=== PATIENT | female | born 1965 | race Caucasian/White ===

== ENCOUNTER 2018-01-13 14:30 | Emergency (ER) | payer BC, OTHER ==
[2018-01-13 14:45] VITALS: BP 140/85
--- NOTE | 2018-01-13 15:28 | UC ---
Throat Pain/Nasal Elio HPI - HPI Summary HPI Summary: started feeling sick with URI 4 days ago, today ST much worse, glands swollen, occ cough - History of Current Complaint Chief Complaint: UCRespiratory Stated Complaint: SORE THROAT Time Seen by Provider: 01/13/18 15:08 Hx Obtained From: Patient Hx Last Menstrual Period: 12/07/17 Onset/Duration: Gradual Onset Pain Intensity: 5 Associated Signs & Symptoms: Positive: Negative - Allergies/Home Medications Allergies/Adverse Reactions: Allergies Allergy/AdvReac Type Severity Reaction Status Date / Time Sulfa (Sulfonamide Allergy Rash Verified 01/13/18 14:45 Antibiotics) Home Medications: Home Medications Losartan TAB* [Cozaar TAB*] 1 tab PO DAILY 01/13/18 [History Confirmed 01/13/18] PMH/Surg Hx/FS Hx/Imm Hx Previously Healthy: Yes Endocrine History: Dyslipidemia Cardiovascular History: Hypertension GI/ History: Gastroesophageal Reflux - Surgical History Surgical History: Yes Surgery Procedure, Year, and Place: TONSILECTOMY AGE 8. RT SHOULDER [place]TH[place] 1989 &1996. LEFT KNEE ACL - Family History Known Family History: Positive: Other - no fmh sinusitis - Social History Occupation: Employed Full-time - sells [employer] Alcohol Use: Occasionally Substance Use Type: None Smoking Status (MU): Never Smoked Tobacco Review of Systems Constitutional: Negative Skin: Negative Eyes: Negative ENT: Sore Throat, Ear Ache, Sinus Congestion, Sinus Pain/Tenderness Respiratory: Negative Cardiovascular: Negative Gastrointestinal: Negative Musculoskeletal: Negative Neurological: Negative Psychological: Negative All Other Systems Reviewed And Are Negative: Yes Physical Exam Triage Information Reviewed: Yes Appearance: Well-Appearing, No Pain Distress Vital Signs: Initial Vital Signs Temp 97.2 F 01/13/18 14:42 Pulse 90 01/13/18 14:42 Resp 18 01/13/18 14:42 BP 140/85 01/13/18 14:42 Pulse Ox 98 01/13/18 14:42 Vital Signs Reviewed: Yes Eyes: Positive: Conjunctiva Clear ENT: Positive: Pharyngeal erythema, Nasal congestion, TM dull Neck: Positive: Enlarged Nodes @ - ant cervical Respiratory: Positive: Lungs clear Cardiovascular Exam: Normal Musculoskeletal Exam: Normal Neurological Exam: Normal Psychological Exam: Normal Skin Exam: Normal Throat Pain/Nasal Course/Dx - Differential Dx/Diagnosis Differential Diagnosis/HQI/PQRI: Otitis Media, Pharyngitis, Sinusitis, Tonsillitis, URI Provider Diagnoses: sinusitis Discharge - Sign-Out/Discharge Documenting (check all that apply): Discharge/Admit/Transfer - Discharge Plan Condition: Stable Disposition: HOME Prescriptions: Amoxicillin/Clavulanate TAB* [Augmentin TAB 875*] 875 mg PO BID #20 tab Referrals: Forest Clark MD [Primary Care Provider] - 3 Days (if no better) Additional Instructions: drink plenty of fluids start augmentin as prescribed ibuprofen as directed for pain and fever - Billing Disposition and Condition Condition: STABLE Disposition: Home
== END 2018-01-13 15:39 | disposition home or self-care (01) ==
LOC: UCEAST 14:30
DX: J32.9 Chronic sinusitis, unspecified (principal); E78.5 Hyperlipidemia, unspecified; I10 Essential (primary) hypertension; K21.9 Gastro-esophageal reflux disease without esophagitis; Z88.2 Allergy status to sulfonamides
CPT/HCPCS: 87651; 99212; G0463

== ENCOUNTER 2018-12-15 09:30 | Emergency (ER) | payer BC ==
[2018-12-15 09:41] VITALS: BP 146/85
--- NOTE | 2018-12-15 10:25 | UC ---
Abdominal Pain Female HPI - HPI Summary HPI Summary: This patient is a 52-year-old female who presents to the urgent care with chief complaint of having upper respiratory tract infection symptoms such as runny nose, dry cough, nasal congestion. She also reports that shes having dysuria, hematuria, urinary frequency and urgency. Patient reports that she feels that she has a urinary tract infection. She denies any fevers, denies any back pain , or abdominal pain. Patient has no other complaints. Urinalysis positive for leukocytes and blood and protein. This is consistent with a UTI. The patient was given a position for Bactrim and will follow-up with the primary care physician. Patient is hemodynamically stable alert and oriented 3 She was instructed to return to the urgent care or emergency room if the symptoms worsen. She understands and agrees. - History of Current Complaint Chief Complaint: UCGU Stated Complaint: HEADCOLD/ URINARY ISSUE Time Seen by Provider: 12/15/18 09:43 Hx Obtained From: Patient Hx Last Menstrual Period: 11/25/18 ?: No Onset/Duration: Gradual Onset Severity Initially: Mild Severity Currently: Mild Pain Intensity: 0 Allergies/Adverse Reactions: Allergies Allergy/AdvReac Type Severity Reaction Status Date / Time lisinopril Allergy Hives Verified 12/15/18 09:41 Sulfa (Sulfonamide Allergy Rash Verified 12/15/18 09:41 Antibiotics) Home Medications: Home Medications Gemfibrozil TAB* [Lopid TAB*] 600 mg PO BID 12/15/18 [History Confirmed ] Hydrochlorothiazide TAB* [Hydrodiuril TAB*] 12.5 mg PO DAILY 12/15/18 [History Confirmed 12/15/18] Omeprazole 40 mg PO DAILY 12/15/18 [History Confirmed 12/15/18] Telmisartan 20 mg PO DAILY 12/15/18 [History Confirmed 12/15/18] PMH/Surg Hx/FS Hx/Imm Hx Previously Healthy: Yes Endocrine History: Dyslipidemia Cardiovascular History: Hypertension - Surgical History Surgical History: Yes Surgery Procedure, Year, and Place: TONSILECTOMY AGE 8. RT SHOULDER [place]THRO 1989 &1996. LEFT KNEE ACL - Family History Known Family History: Positive: None, Other - no fmh sinusitis - Social History Alcohol Use: Occasionally Substance Use Type: None Smoking Status (MU): Never Smoked Tobacco Review of Systems All Other Systems Reviewed And Are Negative: Yes Constitutional: Positive: Negative Skin: Positive: Negative Eyes: Positive: Negative ENT: Positive: Sore Throat, Nasal Discharge, Sinus Congestion Respiratory: Positive: Negative Cardiovascular: Positive: Negative Gastrointestinal: Positive: Negative Genitourinary: Positive: Dysuria, Hematuria, Frequency, Urgency Motor: Positive: Negative Neurovascular: Positive: Negative Neurological: Positive: Negative Psychological: Positive: Negative Is Patient Immunocompromised?: No Physical Exam - Summary Physical Exam Summary: VITAL SIGNS: Reviewed. GENERAL: Patient is an obese female who is lying comfortable in the stretcher. Patient is not in any acute respiratory distress. HEAD AND FACE: No signs of trauma. No ecchymosis, hematomas or skull depressions. No sinus tenderness. EYES: PERRLA, EOMI x 2, No injected conjunctiva, no nystagmus. EARS: Hearing grossly intact. Ear canals and tympanic membranes are within normal limits. MOUTH: Oropharynx within normal limits. NECK: Supple, trachea is midline, no adenopathy, no JVD, no carotid bruit, no c- spine tenderness, neck with full ROM. CHEST: Symmetric, no tenderness at palpation LUNGS: Clear to auscultation bilaterally. No wheezing or crackles. CVS: Regular rate and rhythm, S1 and S2 present, no murmurs or gallops appreciated. ABDOMEN: Soft, non-tender. No signs of distention. No rebound no guarding, and no masses palpated. Bowel sounds are normal. EXTREMITIES: FROM in all major joints, no edema, no cyanosis or clubbing. NEURO: Alert and oriented x 3. No acute neurological deficits. Speech is normal and follows commands. SKIN: Dry and warm Vital Signs: Initial Vital Signs Temp 97.0 F 12/15/18 09:36 Pulse 91 12/15/18 09:36 Resp 16 12/15/18 09:36 BP 146/85 12/15/18 09:36 Pulse Ox 96 12/15/18 09:36 Abd Pain Female Course/Dx - Course Course Of Treatment: Urinalysis positive for leukocytes and blood and protein. This is consistent with a UTI. The patient was given a position for Bactrim and will follow-up with the primary care physician. Patient is hemodynamically stable alert and oriented 3 She was instructed to return to the urgent care or emergency room if the symptoms worsen. She understands and agrees. Patients blood pressure was noted to be elevated. The patient was instructed to follow up with primary care provider for reassessment of increased blood pressure. - Differential Dx/Diagnosis Provider Diagnosis: UTI (urinary tract infection) Discharge - Sign-Out/Discharge Documenting (check all that apply): Patient Departure All imaging exams completed and their final reports reviewed: No Studies - Discharge Plan Condition: Stable Disposition: HOME Prescriptions: Ciprofloxacin TAB* [Cipro 500 MG TAB*] 500 mg PO BID #6 tab Patient Education Materials: Urinary Tract Infection in Women (ED), Upper Respiratory Infection (DC) Referrals: Sugey Samuels MD [Primary Care Provider] - Additional Instructions: Take medications as instructed Increase your fluid intake Return to the UC if symptoms worsen - Billing Disposition and Condition Condition: STABLE Disposition: Home
--- NOTE | 2018-12-16 15:22 | UC ---
- Progress Note Progress Note: 12/16/2018 Urine culture preliminary: positive for E.Coli Pt Rx Ciprofloxacin which covers it No change Faiza Diaz PA-C Course/Dx - Diagnoses Provider Diagnoses: UTI (urinary tract infection) Discharge - Sign-Out/Discharge Documenting (check all that apply): Post-Discharge Follow Up All imaging exams completed and their final reports reviewed: No Studies - Discharge Plan Condition: Stable Disposition: HOME Prescriptions: Ciprofloxacin TAB* [Cipro 500 MG TAB*] 500 mg PO BID #6 tab Patient Education Materials: Urinary Tract Infection in Women (ED), Upper Respiratory Infection (DC) Referrals: Sugey Samuels MD [Primary Care Provider] - Additional Instructions: Take medications as instructed Increase your fluid intake Return to the UC if symptoms worsen - Billing Disposition and Condition Condition: STABLE Disposition: Home - Attestation Statements Provider Attestation: I was available for consult. This patient was seen by the SEFERINO. The patient was not presented to, seen by, or examined by me. -Erma
--- NOTE | 2018-12-17 14:02 | UC ---
- Progress Note Progress Note: + UTI sensitive to cipro Pt on cipro no change parkerj 12/17/18 Course/Dx - Diagnoses Provider Diagnoses: UTI (urinary tract infection) Discharge - Sign-Out/Discharge Documenting (check all that apply): Post-Discharge Follow Up All imaging exams completed and their final reports reviewed: No Studies - Discharge Plan Condition: Stable Disposition: HOME Prescriptions: Ciprofloxacin TAB* [Cipro 500 MG TAB*] 500 mg PO BID #6 tab Patient Education Materials: Urinary Tract Infection in Women (ED), Upper Respiratory Infection (DC) Referrals: Sugey Samuels MD [Primary Care Provider] - Additional Instructions: Take medications as instructed Increase your fluid intake Return to the UC if symptoms worsen - Billing Disposition and Condition Condition: STABLE Disposition: Home
== END 2018-12-15 10:33 | disposition home or self-care (01) ==
LOC: UCEAST 09:30
DX: N39.0 Urinary tract infection, site not specified (principal); B96.20 Unspecified Escherichia coli [E. coli] as the cause of diseases classified elsewhere; E78.5 Hyperlipidemia, unspecified; I10 Essential (primary) hypertension; Z79.899 Other long term (current) drug therapy; Z88.8 Allergy status to other drugs, medicaments and biological substances; Z88.2 Allergy status to sulfonamides
CPT/HCPCS: 81003; 87077; 87086; 87186; 87651; 99212; G0463